=== PATIENT | male | born 1990 | race Caucasian/White ===

== ENCOUNTER 2016-10-21 16:33 | Emergency (ER) | payer OTHER | END 2016-10-21 19:17 | disposition home or self-care (01) | LOC: ER1 16:33 | DX: S62.336A Displaced fracture of neck of fifth metacarpal bone, right hand, initial encounter for closed fracture (principal); S60.221A Contusion of right hand, initial encounter; F17.210 Nicotine dependence, cigarettes, uncomplicated; W22.01XA Walked into wall, initial encounter; Y93.89 Activity, other specified | CPT/HCPCS: 29125; 73110; 73130; 99283 ==

== ENCOUNTER 2016-11-15 11:39 | Emergency (ER) | payer OTHER ==
[2016-11-15 14:32] LABS: HEMOGLOBIN 13.9 gm/dl (14.0-17.5); RED BLOOD COUNT 4.65 M/UL (4.20-5.50); WHITE BLOOD COUNT 10.9 K/UL (4.5-11.0)
[2016-11-15 14:58] LABS: BUN/CREATININE RATIO 12 (0-10)
== END 2016-11-15 16:52 | disposition home or self-care (01) ==
LOC: ER1 11:39
PROVIDERS: Specialist/Technologist Athletic Trainer
DX: R07.89 Other chest pain (principal); F17.200 Nicotine dependence, unspecified, uncomplicated
CPT/HCPCS: 36415; 71010; 80053; 82550; 82553; 83874; 84484; 85025; 85379; 93005; 96361; 96374; 99285; J1885

== ENCOUNTER 2021-04-10 20:57 | Emergency (ER) | payer OTHER ==
[2021-04-10 23:16] LABS: HEMOGLOBIN 13.2 gm/dl (14.0-17.5); RED BLOOD COUNT 4.4 M/UL (4.20-5.50); WHITE BLOOD COUNT 5.4 K/UL (4.5-11.0)
[2021-04-10 23:41] LABS: BUN/CREATININE RATIO 16 (0-10)
== END 2021-04-11 02:20 | disposition home or self-care (01) ==
LOC: ER1 20:57
PROVIDERS: Emergency Medicine
DX: R07.9 Chest pain, unspecified (principal); R42 Dizziness and giddiness
CPT/HCPCS: 71045; 80053; 82550; 82553; 83874; 84484; 85025; 85379; 93005; 99285